=== PATIENT | female | born 1995 | race Hispanic/Latino ===

== ENCOUNTER 2020-05-17 15:24 | Inpatient (IN) | payer BC ==
[~2020-05-17] VITALS: Ht 137.2 cm; Wt 62.1 kg
[2020-05-17] MEDS ORDERED: LACTATED RINGERS 500 ML 500 ML IV PRN (15:45)
[2020-05-17] MEDS ORDERED: NALOXONE HCL 0.4 MG/1 ML ML IV PRN (15:45)
[2020-05-17] MEDS ORDERED: EPHEDRINE SULFATE 50 MG/ML AMPULE IVP PRN (15:45)
[2020-05-17] MEDS ORDERED: DINOPROSTONE 10 MG VAGINAL SUPP VG SCH (15:45)
[2020-05-17 16:08] LABS: HEMATOCRIT 34.8 % (36-48); MEAN CORPUSCULAR HEMOGLOBIN 33.9 pg (27.0-33.0); MEAN CORPUSCULAR HGB CONC 33.3 g/dL (32.0-36.0); MEAN CORPUSCULAR VOLUME 101.8 fL (79-99); RED BLOOD CELL COUNT(AUTO) 3.42 MIL/uL (4.00-5.50); RED CELL DISTRIBUTION WIDTH 15.1 % (11.0-15.5)
[2020-05-17 16:10] LABS: APPEARANCE,URINE Cloudy (CLEAR); BILIRUBIN,URINE Negative (NEGATIVE); COLOR,URINE Dark Yellow (YELLOW); GLUCOSE, URINE (UA) Negative (NEGATIVE); KETONES,URINE Trace mg/dL (NEGATIVE); LEUKOCYTE ESTERASE ,URINE Moderate (NEGATIVE); NITRATE,URINE Negative (NEGATIVE); OCCULT BLOOD,URINE Negative (NEGATIVE); PH,URINE 5.5 (5.0-8.0); PROTEIN,URINE POS 1+ mg/dL (NEGATIVE)
[2020-05-17] MEDS ORDERED: OXYTOCIN-LR 20 UNITS/1000 ML 1,000 ML IV SCH (16:15)
[2020-05-17 16:22] LABS: BACTERIA,URINE Moderate /HPF (None Seen)
[2020-05-17 16:23] LABS: MUCUS,URINE Moderate LPF (None Seen); SPERM,URINE Few /HPF (None Seen); SQUAMOUS EPITHELIAL CELL,UR Few /HPF (0-2)
[2020-05-17] MEDS: PROMETHAZINE HCL 25 MG/ML 1ML AMPULE IM PRN (21:03)
[2020-05-17] MEDS: MEPERIDINE-PF 50 MG/ML SYG IVP PRN (21:05)
[2020-05-17 21:47] VITALS: BP 127/90
[2020-05-18] MEDS: LACTATED RINGERS 1000ML 1,000 ML IV PRN ×2 (01:05→06:36)
[2020-05-18] MEDS: PROMETHAZINE HCL 25 MG/ML 1ML AMPULE IM PRN (06:02)
[2020-05-18] MEDS: MEPERIDINE-PF 50 MG/ML SYG IVP PRN (06:03)
[2020-05-18] MEDS ORDERED: ROPIVACAINE 0.2% 100ML VIAL 100 ML EP SCH (07:30)
[2020-05-18] MEDS ORDERED: OXYTOCIN-LR 20 UNITS/1000 ML 1,000 ML IV SCH (09:45)
[2020-05-18] MEDS ORDERED: LIDOCAINE HCL 1% 20 ML VIAL INJ PRN (13:30)
[2020-05-18] MEDS ORDERED: CALDOLOR 800MG+NS 250ML 250 ML IV PRN (16:15)
[2020-05-18] MEDS ORDERED: CEFAZOLIN SODIUM 1 GM VIAL IVP PRN (16:15)
[2020-05-18] MEDS ORDERED: ROPIVACAINE 0.5% 5MG/ML 30ML IJ ONE (17:18)
[2020-05-18] MEDS ORDERED: PHENYLEPHRINE HCL 10 MG/ML 1ML VIAL IV ONE (17:26)
[2020-05-18] MEDS ORDERED: SODIUM CHLORIDE 0.9% 10 ML VIAL ONE (17:26)
[2020-05-18] MEDS ORDERED: OXYTOCIN 10 UNIT/1ML 10ML VIAL ONE (17:35)
[2020-05-18] MEDS ORDERED: OXYTOCIN 10 USP UNITS/ML ONE (17:36)
[2020-05-18] MEDS ORDERED: DURAMORPH PF1 MG/ML 10ML AMP IV ONE (17:36)
[2020-05-18] MEDS ORDERED: SODIUM CHLORIDE 0.9% 10 ML VIAL IVP PRN (18:30)
[2020-05-18] MEDS ORDERED: MEPERIDINE-PF 75 MG/ML SYG IM PRN (18:30)
[2020-05-18] MEDS ORDERED: PROMETHAZINE HCL 25 MG/ML 1ML AMPULE IM PRN (18:30)
[2020-05-18 21:00] VITALS: BP 101/64
[2020-05-18] MEDS ORDERED: PREN-154 PO (23:02)
[2020-05-19 00:20] VITALS: BP 108/65
[2020-05-19] MEDS: CALDOLOR 800MG+NS 250ML 250 ML IV SCH ×2 (01:59→09:46)
[2020-05-19 03:45] VITALS: BP 95/58
[2020-05-19] MEDS: DEXTROSE 5 %-0.45 % NACL 1,000 ML IV PRN ×2 (03:57→08:59)
[2020-05-19 06:11] LABS: HEPATITIS Bs ANTIGEN SCREEN P Negative (Negative)
[2020-05-19 07:04] LABS: HEMATOCRIT 25.8 % (36-48); MEAN CORPUSCULAR HEMOGLOBIN 34.6 pg (27.0-33.0); MEAN CORPUSCULAR HGB CONC 32.9 g/dL (32.0-36.0); MEAN CORPUSCULAR VOLUME 104.9 fL (79-99); RED BLOOD CELL COUNT(AUTO) 2.46 MIL/uL (4.00-5.50); RED CELL DISTRIBUTION WIDTH 15.7 % (11.0-15.5)
[2020-05-19 07:57] VITALS: BP 110/58
--- NOTE | 2020-05-19 08:10 | NUR ---
epidural catheter removed, tip intact. magaña catheter removed, abdominal dressing removed, incision is dry and intact, applied telfa dressing, applied abdominal binder. informed to call for assistance to the bathroom. pt voiced understanding. Addendum: 05/19/20 at 0916 by LEONA PAGAN RN Amended: Links added.
--- NOTE | 2020-05-19 12:50 | NUR ---
assisted out of bed to the bathroom, voided 200ml, pericare done, assisted to bedside chair. pt tolerated well. Addendum: 05/19/20 at 1312 by LEONA PAGAN RN Amended: Links added.
[2020-05-19] MEDS ORDERED: LANOLIN 30GM OINTMENT TP PRN (13:30)
[2020-05-19] MEDS ORDERED: HYDROCODONE/ACETAMINOPHEN 5/325 MG TAB PO PRN (13:30)
[2020-05-19] MEDS ORDERED: DIPH,PERTUSS(ACELL),TET VAC/PF 0.5 ML VIAL IM SCH (13:30)
[2020-05-19] MEDS ORDERED: IBUPROFEN 600 MG TABLET PO PRN (13:30)
[2020-05-19] MEDS ORDERED: BISACODYL 10 MG SUPP.RECT RC PRN (13:30)
[2020-05-19] MEDS ORDERED: SIMETHICONE 80 MG TAB.CHEW PO PRN (13:30)
[2020-05-19] MEDS ORDERED: ACETAMINOPHEN EXTRA STRENGTH 500 MG TABLET PO PRN (13:30)
[2020-05-19] MEDS ORDERED: ACETAMINOPHEN-CODEINE 300/30MG TAB PO PRN (13:30)
--- NOTE | 2020-05-19 14:10 | NUR ---
ambulating in the hallway in steady gait Addendum: 05/19/20 at 1828 by LEONA PAGAN RN Amended: Links added.
--- NOTE | 2020-05-19 15:52 | NUR ---
Dr. Rinaldi called and asked for update on pt. She gave an order for discharge today. Addendum: 05/19/20 at 1557 by LEONA PAGAN RN Amended: Links added.
[2020-05-19 16:04] VITALS: BP 115/51
--- NOTE | 2020-05-19 17:30 | NUR ---
verbal and written discharge instructions given, informed that Dr. Rinaldi called their preferred pharmacy for prescription. informed of the follow up appointment. all questions answered. informed to call the doctor for future concerns. pt voiced understanding to all things discussed. Addendum: 05/19/20 at 1746 by LEONA PAGAN RN Amended: Links added.
--- NOTE | 2020-05-19 18:30 | NUR ---
pt is dismissed in stable condition, brought to private car via wheelchair by Leanne brandon Addendum: 05/19/20 at 1837 by LEONA PAGAN RN Amended: Links added.
[2020-05-19] MEDS ORDERED: DOCUSATE SODIUM 100 MG CAP PO SCH (21:00)
== END 2020-05-19 18:30 | disposition home or self-care (01) | DRG 788 ==
LOC: EDH 15:24 → LDH 15:29 → WSH 05-18 21:00
PROVIDERS: ADMIT Obstetrics & Gynecology; ATTEND Obstetrics & Gynecology
PROC: 3E0234Z Introduction of Serum, Toxoid and Vaccine into Muscle, Percutaneous Approach (ICD-10-PCS; 2020-05-18)
PROC: 10D00Z1 Extraction of Products of Conception, Low, Open Approach (ICD-10-PCS; principal; 2020-05-18 17:17)
DX: O35.9XX0 Maternal care for (suspected) fetal abnormality and damage, unspecified, not applicable or unspecified (principal); O62.1 Secondary uterine inertia; Z3A.39 39 weeks gestation of pregnancy; Z37.0 Single live birth; Z23 Encounter for immunization
CPT/HCPCS: 36415; 59510; 81001; 85027; 86592; 86850; 86900; 86901; 87088; 87340; 90715; A4314; A4344; A4351; A4606; G0378; J0690; J1741; J2175; J2274; J2370; J2550; J2590; J2795; J3010; J7120; U0003

== ENCOUNTER 2024-05-20 20:22 | Emergency (ER) | payer BC, OTHER ==
[~2024-05-20] VITALS: Ht 137.2 cm; Wt 52.6 kg
[~2024-05-20 20:22] MED LIST: ACET-2079 PO; DOCU-116 PO; IBUP-2071 PO; PREN-154 PO
[2024-05-20 21:34] LABS: BASOPHILS # (AUTO) 0.01 K/uL (0.00-0.20); BASOPHILS % (AUTO) 0.2 % (0.0-5.0); EOSINOPHILS # (AUTO) 0.03 K/uL (0.00-0.70); EOSINOPHILS % (AUTO) 0.7 % (0.0-8.0); HEMATOCRIT 28.1 % (36-48); IMMATURE GRANULOCYTE ABSOLUTE 0.01 K/uL (0-1); LYMPHOCYTES # (AUTO) 1.5 K/uL (1.0-4.8); LYMPHOCYTES % (AUTO) 36.8 % (21.0-51.0); MEAN CORPUSCULAR HEMOGLOBIN 23.5 pg (27.0-33.0); MEAN CORPUSCULAR HGB CONC 30.2 g/dL (32.0-36.0); MEAN CORPUSCULAR VOLUME 77.6 fL (79-99); MONOCYTES # (AUTO) 0.6 K/uL (0.1-1.0); MONOCYTES % (AUTO) 13.1 % (3.0-13.0); NEUTROPHILS # (AUTO) 2.1 K/uL (1.8-7.7); PLATELET COUNT (AUTO) 198 K/uL (130-400); RED BLOOD CELL COUNT(AUTO) 3.62 MIL/uL (4.00-5.50); RED CELL DISTRIBUTION WIDTH 17.9 % (11.0-15.5); WHITE BLOOD COUNT (AUTO) 4.2 K/uL (4.8-10.8)
[2024-05-20 21:46] LABS: CREATININE 0.8 mg/dL (0.5-1.0); POTASSIUM 3.5 mmol/L (3.5-5.1)
[2024-05-21] MEDS ORDERED: CEPH500B PO (02:58)
[2024-05-21] MEDS ORDERED: FERR324T4 PO (02:58)
[2024-05-21 03:05] VITALS: BP 112/82; PULSE 82; RESP 18; O2SAT 99
== END 2024-05-21 03:07 | disposition home or self-care (01) ==
LOC: EDH 20:22
DX: O03.9 Complete or unspecified spontaneous abortion without complication (principal)
CPT/HCPCS: 36415; 76801; 80048; 84703; 85025; 86156; 86850; 86870; 86900; 86901